=== PATIENT | male | born 1975 | race Caucasian/White ===

== ENCOUNTER 2020-07-04 16:39 | Outpatient (REF) | payer OTHER, SELFPAY | END 2020-07-04 16:40 | disposition home or self-care (01) | LOC: HO.LAB 16:39 | PROVIDERS: Visit Provider Internal Medicine | DX: Z20.822 Contact with and (suspected) exposure to COVID-19 (principal) | CPT/HCPCS: 36415; C9803; U0003 ==

== ENCOUNTER → 2020-07-21 09:45 | Outpatient (REF) | payer OTHER, SELFPAY ==
--- NOTE | 2020-07-21 09:52 | ECG_ITS ---
Test Reason : CHEST PAIN Blood Pressure : / mmHG Vent. Rate : 051 BPM Atrial Rate : 051 BPM P-R Int : 178 ms QRS Dur : 088 ms QT Int : 386 ms P-R-T Axes : 027 017 010 degrees QTc Int : 355 ms Sinus bradycardia Otherwise normal ECG No previous ECGs available Referred By: Maegan Garcia Electronically Signed By:JERI TAM MD
== END ==
LOC: HO.CARD 09:45
PROVIDERS: PCP Internal Medicine; Visit Provider Nurse Practitioner Family
DX: R07.89 Other chest pain (principal)
CPT/HCPCS: 93005

== ENCOUNTER 2020-08-02 08:30 | Outpatient (REF) | payer OTHER, SELFPAY ==
[2020-08-02 09:25] LABS: MANUAL DIFF FLAG NO
[2020-08-02 09:34] LABS: Basophils Percent Auto 0.4 % (0-2); Eosinophils Absolute Auto 0.1 X10*3/uL (0.0-0.4); Eosinophils Percent Auto 1.2 % (0-4); Hematocrit 43.1 % (42-52); Hemoglobin 14.8 g/dl (14.0-18.0); Imm Gran Abs Auto 0.02 X10*3/uL (0.00-0.03); Imm Gran Pct Auto 0.4 % (0.0-0.4); Lymphocytes Absolute Auto 1.4 X10*3/uL (1.2-4.9); Lymphocytes Percent Auto 28.6 % (20-40); Mean Corpuscular HGB Conc 34.3 g/dl (31.0-36.0); Mean Corpuscular Hemoglobin 28.7 pg (27.0-33.0); Mean Corpuscular Volume 83.7 fL (80-98); Mean Platelet Volume 9.5 fL (9.4-12.4); Monocytes Absolute Auto 0.4 X10*3/uL (0.1-1.2); Monocytes Percent Auto 8.3 % (2-11); Neutrophils Absolute Auto 3.1 X10*3/uL (2.0-8.3); Neutrophils Percent Auto 61.1 % (45-73); Platelet Count 238 X10*3/uL (160-400); Red Blood Count 5.15 X10*6/uL (4.60-5.80); Red Cell Distribution Width 12.8 % (11.0-16.0)
[2020-08-02 09:42] LABS: Estimated Average Glucose 103 mg/dL; Hemoglobin A1c % 5.2 %
[2020-08-02 09:59] LABS: Alanine Aminotransferase 47 U/L (0-40); Albumin Level 4.2 g/dL (3.5-5.0); Alkaline Phosphatase 67 U/L (39-117); Anion Gap 10 (12-20); Aspartate Amino Transferase 30 U/L (5-37); Bilirubin Direct 0.2 mg/dL (0.0-0.5); Bilirubin Total 0.7 mg/dL (0.0-1.0); Blood Urea Nitrogen 11 mg/dL (9-16); Calcium 9.2 mg/dL (8.4-10.2); Carbon Dioxide 31 mmol/L (22-29); Chloride 104 mmol/L (96-108); Cholesterol 196 mg/dL; Estimated Glomerular Filt Rate > 60; Glucose Fasting 92 mg/dL (60-99); HDL Cholesterol 46 mg/dL; LDL Cholesterol Calculated 129 mg/dl; Potassium 4.4 mmol/L (3.3-5.1); Rheumatoid Factor < 15.0 IU/mL (<15.0); Sodium 141 mmol/L (135-145); Total Protein 6.6 g/dL (6.5-8.0); Triglycerides 109 mg/dL
[2020-08-02 10:10] LABS: Troponin-I High Sensitivity < 3.5 ng/L (<3.5-35.0)
== END 2020-08-02 08:31 | disposition home or self-care (01) ==
LOC: HO.LAB 08:30
PROVIDERS: Visit Provider Nurse Practitioner Family
DX: Z00.00 Encounter for general adult medical examination without abnormal findings (principal); R07.89 Other chest pain
CPT/HCPCS: 36415; 80048; 80061; 80076; 83036; 84443; 84484; 85025; 86431

== ENCOUNTER 2020-10-15 12:25 | Outpatient (REF) | payer OTHER, SELFPAY ==
[2020-10-15 13:46] LABS: Alanine Aminotransferase 41 U/L (0-40); Albumin Level 4.4 g/dL (3.5-5.0); Alkaline Phosphatase 78 U/L (39-117); Anion Gap 12 (12-20); Aspartate Amino Transferase 22 U/L (5-37); Bilirubin Total 0.6 mg/dL (0.0-1.0); Blood Urea Nitrogen 14 mg/dL (9-16); Calcium 10.1 mg/dL (8.4-10.2); Carbon Dioxide 30 mmol/L (22-29); Chloride 104 mmol/L (96-108); Estimated Glomerular Filt Rate > 60; Glucose Random 103 mg/dL (60-115); Potassium 4.6 mmol/L (3.3-5.1); Sodium 141 mmol/L (135-145); Total Protein 7.1 g/dL (6.5-8.0)
[2020-10-15 14:00] LABS: Magnesium 2.1 mg/dL (1.6-2.6)
[2020-10-15 14:02] LABS: Erythrocyte Sedimentation Rate 7 MM/HR (0-15)
[2020-10-17 08:51] LABS: HBc Num1 0.05 S/CO (0.00-0.79); Hepatitis B Core Antibody Nonreactive (Nonreactive); ~Hepatitis B Surface Antibody REACTIVE (Nonreactive)
[2020-10-17 09:04] LABS: HBsAGNum1 0.15 S/CO (0.00-0.99); Hepatitis B Surface Antigen Negative (Negative); ~Hepatitis C Antibody Nonreactive (Nonreactive)
== END 2020-10-15 12:26 | disposition home or self-care (01) ==
LOC: HO.LAB 12:25
PROVIDERS: Absent Provider Internal Medicine; PCP Internal Medicine; Visit Provider Psychiatry & Neurology Neurology
DX: R25.3 Fasciculation (principal); R79.89 Other specified abnormal findings of blood chemistry; R94.5 Abnormal results of liver function studies
CPT/HCPCS: 36415; 80053; 82550; 83735; 85652; 86704; 86706; 86803; 87340

== ENCOUNTER 2020-10-22 09:19 | Outpatient (REF) | payer OTHER, SELFPAY ==
--- NOTE | ~2020-10-22 | US_ITS ---
EXAMINATION: US ABDOMEN LIMITED CLINICAL INFORMATION: Elevated LFTs. GERD. COMPARISON: None TECHNIQUE: Real-time imaging of the right upper quadrant abdominal viscera. FINDINGS: PANCREAS: Normal. LIVER: Liver echotexture is slightly increased. The liver is normal in size. The liver contour is normal. No focal hepatic lesion. There is no intrahepatic biliary duct dilatation seen. GALLBLADDER: Normal. The gallbladder is physiologically distended without evidence of stones, sludge, polyps, wall thickening or pericholecystic fluid. COMMON BILE DUCT: Normal in caliber measuring 0.26 cm in diameter. RIGHT KIDNEY: Normal. No hydronephrosis. No renal calculi or focal parenchymal lesions. The kidney measures 11.0 cm in maximum dimension. FREE FLUID: None. US/US abdomen limited IMPRESSION: Slightly echogenic liver probably representing fatty infiltration. Otherwise unremarkable exam.
== END 2020-10-22 09:20 | disposition home or self-care (01) ==
LOC: HO.US 09:19
PROVIDERS: Visit Provider Internal Medicine
DX: R79.89 Other specified abnormal findings of blood chemistry (principal)
CPT/HCPCS: 76705

== ENCOUNTER 2020-10-23 14:40 | Outpatient (REF) | payer OTHER, SELFPAY ==
--- NOTE | 2020-10-24 11:46 | MHC.AU.ANO ---
Adult Audiological Evaluation Date of Visit: 10/23/20 Reason for Appointment: Patient has been experiencing bilateral, constant, high-pitched tinnitus since July 2020. He reports that for the last several years, he has been experiencing random, frequent muscle twitches/convulsions. When they occur, they are generally isolated to a certain area, and may last for days. The twitch then moves to a different part of the body. In July, after experiencing the convulsions in his upper body, he experienced a severe headache in the back of his head. The pain migrated towards the top of his head, and then later spread to the area around his ears. He went to the Emergency Room to address the headache. After the headache improved, he developed tinnitus that has not gone away. Patient reports there has not been a definitive diagnosis of what is causing this array of symptoms, but there is a question of whether it might be seizure activity. Hearing Handicap Inventory: HHIE SCORE: 8 Based on HHIE score, patient has: No perceived hearing handicap Ear History: Ear Deformity: None Reported Recent Ear Drainage: None Reported Ear Infections in Childhood: None Reported History of Ear Wax Buildup: None Reported Previous Ear Surgery: None Reported Bothersome Tinnitus/Ringing/Noises in Ears: Both Ears Ear used on the phone: Right Ear History of occupational noise exposure?: Yes: [place] History: No Medical History: Medical History: Headache, Head Injury, Tobacco Use Otoscopy: Right Ear: Unremarkable Left Ear: Unremarkable Tympanometry: Tympanometry performed due to: To assess integrity of the middle ear system Right Ear: Normal Middle Ear System (Type A) Left Ear: Normal Middle Ear System (Type A) Acoustic Reflexes: Ipsilateral Probe Right: 500 Hz: Absent 1000 Hz: Elevated 2000 Hz: Elevated 4000 Hz: Absent Probe Left: 500 Hz: Elevated 1000 Hz: Present 2000 Hz: Elevated 4000 Hz: Absent Contralateral Probe Right: 500 Hz: Absent 1000 Hz: Absent 2000 Hz: Absent 4000 Hz: Absent Probe Left: 500 Hz: Absent 1000 Hz: Elevated 2000 Hz: Elevated 4000 Hz: Absent Otoacoustic Emissions Frequency Range Used: 1.6-8 kHz Right Ear Results: Reduced at 1.6-6 kHz, normal at 8 kHz Analysis: Reduced/Absent emissions suggest cochlear dysfunction Left Ear Results: Reduced at 1.6-6 kHz, normal at 8 kHz Analysis: Reduced/Absent emissions suggest cochlear dysfunction Hearing Evaluation: Transducer(s) Used: Insert Earphones Method: Conventional Audiometry Stimuli Used: Pure Tones Right Ear: Description of Hearing: Normal 250-3000 Hz, notch to mild sensorineural hearing loss at 4000 Hz, and rising to normal by 8000 Hz Left Ear: Description of Hearing: Normal 250-3000 Hz, notch to mild sensorineural hearing loss at 6000 Hz, and rising to normal by 8000 Hz Speech Recognition Threshold (SRT): Method Used: Recorded Lists Stimuli Used: Spondee Words Right Ear: 10 dBHL Left Ear: 10 dBHL Word Discrimination: Method: Recorded Lists Word Lists Used: NU-6 Right Ear: 96% at 50 dBHL Left Ear: 100% at 50 dBHL QuickSIN: SNR Loss of 4 dB, which suggests mildly elevated difficulty hearing in background noise Interpretation of Results: Patient's otoacoustic emission results and acoustic reflex results are abnormal, and highly unexpected given the mostly normal audiogram. This suggests that there may be retrocochlear pathology, and further work-up is needed. Recommendations: Referral to Ear, Nose, and Throat is highly recommended to address absent/reduced otoacoustic emissions and absent/elevated acoustic reflexes in the presence of mostly normal hearing. Amplification is not warranted at this time. Discussed tinnitus relief strategies, such as use of fans, music, tv, etc. Diagnosis: Primary Diagnosis: H93.13 Tinnitus, Bilateral Secondary Diagnosis: H90.3 Bilateral Sensorineural Hearing Loss Services Performed: Comprehensive Audiological Evaluation (CPT 25996), Limited Otoacoustic Emissions (CPT 08151), Tympanometry and Acoustic Reflexes (CPT 98656) Signature: Provider: Jazz Renae, [facility]
== END 2020-10-23 14:41 | disposition home or self-care (01) ==
LOC: HO.SH 14:40
PROVIDERS: Visit Provider Internal Medicine
DX: H90.3 Sensorineural hearing loss, bilateral (principal); H93.13 Tinnitus, bilateral
CPT/HCPCS: 92550; 92557; 92587

== ENCOUNTER 2021-04-27 15:24 | Outpatient (REF) | payer OTHER, SELFPAY ==
[2021-04-27 19:09] LABS: Bilirubin Direct 0.2 mg/dL (0.0-0.5); Bilirubin Total 0.6 mg/dL (0.0-1.0); Cholesterol 215 mg/dL; HDL Cholesterol 42 mg/dL; LDL Cholesterol Calculated 149 mg/dl; Lipase 17 U/L (8-78); Triglycerides 124 mg/dL
[2021-04-27 19:29] LABS: TSH reflex Free T4 0.46 uIU/mL (0.32-4.0)
[2021-04-27 19:56] LABS: Folate 13.4 ng/mL (> or = 4.0)
[2021-04-27 20:43] LABS: Vitamin B12 398 pg/mL (200-900)
[2021-05-01 13:46] LABS: Vitamin D 25-OH, D2 <4 ng/mL; Vitamin D 25-OH, D3 22 ng/mL; Vitamin D 25-OH, Total 22 ng/mL (30-100)
[2021-05-01 15:01] LABS: FIB-ALT 34 U/L (9-46); FIB-Alpha-2-Macroglobulin 113 mg/dL (106-279); FIB-Apolipoprotein A1 127 mg/dL (94-176); FIB-GGT 35 U/L (3-95); FIB-Haptoglobin 68 mg/dL (43-212); FIB-Total Bilirubin 0.5 mg/dL (0.2-1.2); Liver Fibrosis Score 0.14; Liver Fibrosis Stage F0; Nec Inflam Act Grade A0; Nec Inflam Act Score 0.14
[2021-05-02 10:22] LABS: Transglutaminase Ab IgG <1.0 U/mL; Transglutaminase IgA <1.0 U/mL
== END 2021-04-27 15:25 | disposition home or self-care (01) ==
LOC: HO.LAB 15:24
PROVIDERS: PCP Internal Medicine; Referring Provider Internal Medicine; Visit Provider Nurse Practitioner Family
DX: R10.11 Right upper quadrant pain (principal); E55.9 Vitamin D deficiency, unspecified; I25.10 Atherosclerotic heart disease of native coronary artery without angina pectoris; R17 Unspecified jaundice; R14.0 Abdominal distension (gaseous); K76.0 Fatty (change of) liver, not elsewhere classified; K21.9 Gastro-esophageal reflux disease without esophagitis; R13.10 Dysphagia, unspecified; K58.2 Mixed irritable bowel syndrome; Z12.11 Encounter for screening for malignant neoplasm of colon
CPT/HCPCS: 36415; 80061; 81596; 82247; 82248; 82306; 82607; 82746; 83516; 83690; 84443

== ENCOUNTER → 2021-06-17 15:31 | Outpatient (BNVA) | payer OTHER, SELFPAY | PROVIDERS: PCP Internal Medicine; Referring Provider Internal Medicine; Visit Provider Nurse Practitioner Family ==

== ENCOUNTER → 2021-10-28 16:08 | Outpatient (BNVA) | payer OTHER, SELFPAY | PROVIDERS: PCP Internal Medicine; Referring Provider Internal Medicine; Visit Provider Nurse Practitioner Family | DX: Z13.89 Encounter for screening for other disorder (principal) ==

== ENCOUNTER 2022-06-28 07:57 | Day surgery (SDC) | payer OTHER, SELFPAY ==
[2022-06-24 09:44] VITALS: BMI 30.7
[2022-06-28 08:11] VITALS: BP 128/64; PULSE 67; RESP 15; TEMP 36.3; O2SAT 98
--- NOTE | 2022-06-28 08:35 | MHC.SHP ---
Pre-Procedural Eval Section A Date of Service: 06/28/22 The patient is an INPATIENT: No The History & Physical has been completed within 30 days and I have reviewed it.: No Section B Chief Complaint: colon cancer screening, rectal bleeding, IBS Details of Present Illness: colon cancer screening, rectal bleeding, IBS Relevant Family History (Specify if Yes): No Relevant Social History: Tobacco Use ( former smoker) Present Medications: see Short Stay Collaborative assessment Medical History: Significant History (Epiploic appendagitis GERD (gastroesophageal reflux disease) Overweight (BMI 25.0-29.9) Pain, chest wall Seizure) History of Previous Operations: No relevant previous surgery Allergies: Allergies Allergy/AdvReac Type Severity Reaction Status Date / Time No Known Allergies Allergy Verified 05/24/22 14:18 Review of Systems Sugical H&P ROS: Negative: Constitution, Cardiovascular, Respiratory and Gastrointestinal Exam Surgical H&P Exam: Normal: Heart, Normal: Lungs, Normal: Extremities and Normal: Abdomen Plan Diagnosis/Plan: Unchanged I have reviewed the history and physical and performed a pertinent physical examination on my patient. No changes have occurred unless specified. Time Spent With Patient Time: Total time managing care of this patient today ____ minutes.
[2022-06-28] MEDS: Lactated Ringers 1,000 ML 80 ML IVCONT (08:39)
--- NOTE | 2022-06-28 09:03 | HO.ANESPROP2 ---
[facility] Active Problems Active Problems: All Active Problems (Updated 06/28/22 @ 08:05 by Page Cortés RN) Tinnitus of both ears (Acute) Fatty liver (Acute) Annual physical exam (Acute) Obesity (BMI 30.0-34.9) (Acute) Visual changes (Acute) Hypercholesterolemia (Acute) Seizure (Acute) GERD (gastroesophageal reflux disease) (Acute) Overweight (BMI 25.0-29.9) (Acute) Pain, chest wall (Acute) Past Medical History Medical History Epiploic appendagitis GERD (gastroesophageal reflux disease) Overweight (BMI 25.0-29.9) Pain, chest wall Seizure Functional capacity: independent ambulation Family History Family History Father Myocardial infarct Mother Depression Family history of problems with anesthesia: No Surgical History Surgical History No pertinent past surgical history History of Problems with Anesthesia: No Social History Social History Housing: House Alcohol intake: current Alcohol intake frequency: a few times a month Patient Tobacco Use Status: Former Tobacco user Quit Date: 2011 Tobacco use type: Cigarette Years Smoked: quit 2003 e-Cigarette/Vaping Use: Never Used Second Hand Smoke Exposure: No Use of substances other than those prescribed or required for medical reasons: No Are you DNR?: No Advance Directives: No Advance Directives Information Provided: Yes Current occupational status: employed Cognitive needs: No Hearing needs: No Vision needs: No Meds Allergies Allergy/AdvReac Type Severity Reaction Status Date / Time No Known Allergies Allergy Verified 06/28/22 08:40 Active Medications: Current Medications Lactated Ringer's (Lr) 1,000 mls @ 80 mls/hr IVCONT .[id number] ISSA Last Admin: 06/28/22 08:39 Dose: 80 mls/hr Home Medications Medication Instructions Recorded Confirmed Last Taken Type acetaminophen 500 mg tablet 500 mg PO Q6H PRN Pain 03/13/21 05/24/22 Unknown History (Tylenol Extra Strength) Exam Exam Date and Time: June 28, 2022902 Height,Weight and Vital Signs: Height 5 ft 6 in Weight 86.183 kg Last Vital Signs Temp 97.4 F 06/28/22 08:11 Pulse 67 06/28/22 08:11 Resp 15 06/28/22 08:11 BP 128/64 06/28/22 08:11 Pulse Ox 98 06/28/22 08:11 O2 Del Method 06/28/22 08:11 Airway Mallampati Class: III TM Dist: >3cm Neck ROM: Full Heart: RRR Lungs: CTA Assessment and Plan Final Anesthetic Review Family History of Problems with Anesthesia: No History of Problems with Anesthesia: No ASA Class: II Patient Risk: Low Procedure Risk: Low Anesthetic Plan Anesthetic Plan: MAC: Disposition: Standard PACU
--- NOTE | 2022-06-28 09:24 | P.CONAN_ITS ---
[facility] Active Problems Active Problems: All Active Problems (Updated 06/28/22 @ 08:05 by Page Cortés RN) Tinnitus of both ears (Acute) Fatty liver (Acute) Annual physical exam (Acute) Obesity (BMI 30.0-34.9) (Acute) Visual changes (Acute) Hypercholesterolemia (Acute) Seizure (Acute) GERD (gastroesophageal reflux disease) (Acute) Overweight (BMI 25.0-29.9) (Acute) Pain, chest wall (Acute) Past Medical History Medical History Epiploic appendagitis GERD (gastroesophageal reflux disease) Overweight (BMI 25.0-29.9) Pain, chest wall Seizure Functional capacity: independent ambulation Family History Family History Father Myocardial infarct Mother Depression Family history of problems with anesthesia: No Surgical History Surgical History No pertinent past surgical history History of Problems with Anesthesia: No Social History Social History Housing: House Alcohol intake: current Alcohol intake frequency: a few times a month Patient Tobacco Use Status: Former Tobacco user Quit Date: 2011 Tobacco use type: Cigarette Years Smoked: quit 2003 e-Cigarette/Vaping Use: Never Used Second Hand Smoke Exposure: No Use of substances other than those prescribed or required for medical reasons: No Are you DNR?: No Advance Directives: No Advance Directives Information Provided: Yes Current occupational status: employed Cognitive needs: No Hearing needs: No Vision needs: No Meds Allergies Allergy/AdvReac Type Severity Reaction Status Date / Time No Known Allergies Allergy Verified 06/28/22 08:40 Active Medications: Current Medications Lactated Ringer's (Lr) 1,000 mls @ 80 mls/hr IVCONT .[id number] ISSA Last Admin: 06/28/22 08:39 Dose: 80 mls/hr Home Medications Medication Instructions Recorded Confirmed Last Taken Type acetaminophen 500 mg tablet 500 mg PO Q6H PRN Pain 03/13/21 05/24/22 Unknown History (Tylenol Extra Strength) Exam Exam Date and Time: June 28, 2022923 Height,Weight and Vital Signs: Height 5 ft 6 in Weight 86.183 kg Last Vital Signs Temp 97.4 F 06/28/22 08:11 Pulse 67 06/28/22 08:11 Resp 15 06/28/22 08:11 BP 128/64 06/28/22 08:11 Pulse Ox 98 06/28/22 08:11 O2 Del Method 06/28/22 08:11 Assessment and Plan Final Anesthetic Review Family History of Problems with Anesthesia: No History of Problems with Anesthesia: No ASA Class: II Final Preanesthetic Review: Meds/Allgs Chart Reviewed, Consent Obtained/Reviewed and Anes Risks/Benef Reviewed Patient Risk: Low Procedure Risk: Low Anesthetic Plan Anesthetic Plan: MAC: Disposition: Standard PACU
--- NOTE | 2022-06-28 09:33 | PM.OP ---
Brief Operative Note Date of Service: 06/28/22 Pre-op diagnosis: colon cancer screening, rectal bleeding, IBS Post-op diagnosis: other ( diverticulosis, hemorrhoids) Procedure: COLONOSCOPY TILL CECUM WITH BIOPSIES Surgeon: Ed Ramirez MD Anesthesia: MAC Was an Furnace Process Supervisor used for this Procedure?: Yes Furnace Process Supervisor: Fior Ortega Estimated blood loss (mL): 0 Pathology: other (A. right colon bxs, R/O microscopic colitis B. left colon bxs, R/O microscopic colitis) Condition: stable Disposition: PACU
--- NOTE | 2022-06-28 09:35 | P.OP_ITS ---
Operative Note Operative Note Date of Service: 06/28/22 Narrative: Pre-op diagnosis: colon cancer screening, rectal bleeding, IBS Post-op diagnosis:?other ( diverticulosis, hemorrhoids) Surgeon: Ed Ramirez MD Anesthesia:?MAC COLONOSCOPY TILL CECUM WITH BIOPSIES Consent: Indications for the procedure and potential complications of bleeding, perforation, reaction to medications and missed diagnosis were discussed with the patient and informed consent was obtained. Instrument: Olympus PCF H 190 L variable stiffness pediatric colonoscope Monitoring: Vital signs and clinical assessment, intermittent blood pressure monitoring, continuous EKG monitoring, Pulse oximetry and Carbon Dioxide monitoring were done throughout the procedure. Colon withdrawl time was 10 minutes. Procedure: The patient was placed in the left lateral decubitis position and pre-procedure medications were administered. After a digital rectal examination of the ano-rectum, the video colonoscope was inserted into the rectum and advanced through the colon to the cecum. The colonoscope was slowly withdrawn in a retrograde panoramic fashion and the colon mucosa was carefully examined including a retroflexed view of the rectum. Findings and interventions are described below. Procedure Difficulty: Without difficulty Findings: Terminal Ileum: Not evaluated Cecum: Normal Ascending Colon: Normal Transverse Colon: Normal Descending Colon: Normal Sigmoid Colon: Moderate diverticulosis Rectum: Normal Ano-rectum: Moderate internal hemorrhoids Colon preparation: Excellent Impression and Post Procedure Diagnosis: Colonoscopy Findings: no polyps were detected random biopsies were obtained from right and left colon to check for microscopic colitis Moderate diverticulosis seen in the sigmoid colon Moderate hemorrhoids on retroflexed exam. Plan: Await pathology results Patient has an appointment on 07/12/22 in the GI Clinic with Janeen Montero FNP- BC. Repeat Colonoscopy in 10 years if biopsies are normal. Above findings were reviewed with the patient and Hemorrhoids and diverticulosis handouts were given in the discharge area. Pt denies recent rectal bleeding. He was advised to use hydrocortisone cream as needed for recurrent bleeding.
[2022-06-28 09:36] VITALS: BP 95/47; PULSE 64; RESP 16; TEMP 37.1; O2SAT 95
[2022-06-28 09:51] VITALS: BP 108/62; PULSE 66; RESP 16; TEMP 37.1; O2SAT 97
--- NOTE | 2022-06-28 11:05 | HO.POSTANES ---
Post Anesthesia Evaluation Post Anesthesia Evaluation Vital Signs: Vital Signs Temp Pulse Resp BP Pulse Ox O2 Del Method 06/28/22 09:51 98.8 F 66 16 108/62 97 Room Air 06/28/22 09:36 98.8 F 64 16 95/47 L 95 Room Air 06/28/22 08:11 97.4 F 67 15 128/64 98 Room Air Anesthesia: Monitored Mental Status: Awake Pain Control: Satisfactory Nausea/Vomiting: None Hydration: Adequate Anesthesia-Related Issues: No Anes. Related Issues
== END 2022-06-28 10:40 | disposition home or self-care (01) ==
PROVIDERS: PCP Internal Medicine; Visit Provider Internal Medicine Gastroenterology
PROC: 0DJD8ZZ Inspection of Lower Intestinal Tract, Via Natural or Artificial Opening Endoscopic (ICD-10-PCS; CPT 45378; principal; 2022-06-28 09:10)
DX: Z12.11 Encounter for screening for malignant neoplasm of colon (principal); K58.9 Irritable bowel syndrome, unspecified; K57.30 Diverticulosis of large intestine without perforation or abscess without bleeding; K64.8 Other hemorrhoids; K21.9 Gastro-esophageal reflux disease without esophagitis; K63.89 Other specified diseases of intestine; R56.9 Unspecified convulsions; E66.3 Overweight; Z68.30 Body mass index [BMI] 30.0-30.9, adult; Z79.899 Other long term (current) drug therapy; Z87.891 Personal history of nicotine dependence
CPT/HCPCS: 45380; 88305

== ENCOUNTER 2024-03-30 08:00 | Outpatient (AMB) | payer OTHER, SELFPAY ==
[2024-03-30 08:02] VITALS: BP 130/68; PULSE 50; O2SAT 98; BMI 31.1
--- NOTE | 2024-03-30 08:02 | A.OFFPC_ITS ---
Vital Signs 03/30/24 08:02 Height 5 ft 6 in Weight 193 lb BMI 31.1 BP 130/68 Blood Pressure Location Lt brachial Position Sitting Pulse 50 Pulse Source Pulse Oximeter Pulse Oximetry (%) 98 Oxygen Delivery Method Room Air Intake Visit Reasons: stomach pain Intake Note: pt c/o LUQ pain [id number] Creel Hand Required: No Allergies No Known Allergies Allergy (Verified 03/30/24 08:06) Medication List - Last Reconciled 03/30/24 by Kayla Yañez PA-C No Known Home Meds Tobacco use date assessed: 03/30/24 HPI stomach pain HPI Details 46-year-old obese male with a history of GERD and seizure disorder and fatty liver last seen by Dr. Geronimo coming in for acute problem. Patient states 1 month ago started having right upper quadrant pain which is very mild and eventually started radiating to the epigastric and right lower quadrant area. Last week went to [facility] ER for this concern abdominal CT and right upper quadrant ultrasound is negative for acute abnormalities and patient was discharged home with omeprazole. Abdominal pain completely resolved last Tuesday and and resumed Tuesday night in the right upper quadrant that migrated to the left upper quadrant. Pain typically resolves with eating warm foods. He mentioned the pain this now in bilateral rib areas and worsens with driving and when he tenses up. [facility] Medical History (Updated 03/30/24 @ 10:31 by Kayla Yañez PA-C) Epiploic appendagitis Seizure GERD (gastroesophageal reflux disease) Overweight (BMI 25.0-29.9) Pain, chest wall Surgical History (Updated 07/09/22 @ 10:44 by Ry Mcguire) Hx of colonoscopy No pertinent past surgical history Family History Father Myocardial infarct Mother Depression Social History Housing: House Alcohol intake: current Alcohol intake frequency: a few times a month Patient Tobacco Use Status: Former Tobacco user Tobacco use type: Cigarette Years Smoked: quit 2003 e-Cigarette/Vaping Use: Never Used Second Hand Smoke Exposure: No Current occupational status: employed Cognitive needs: No Hearing needs: No Vision needs: No Questionnaire Thrive Questionnaire Date Thrive assessed: 02/08/22 Are you currently unemployed and looking for a job?: No AUDIT C Alcohol Use Questionnaire (AUDIT-C) 1. How often do you have a drink containing alcohol?: Never 3. How often do you have six or more drinks on one occasion?: Never Total Score: 0 LESLIE-7 AMB Questionnaire LESLIE-7 Date LESLIE - 7 assessed: 02/08/22 Source: Developed by Drs. Trent Escamilla, Kelin Bentley, Jasson Montes and colleagues, with an educational sunita from [employer]. Review of Systems Const Denies body aches, Denies chills, Denies fever(s), Denies headache(s) and Denies poor appetite Eyes Reports no additional complaints ENT Denies dizziness and Denies headache(s) Card Denies chest pain, Denies edema, Denies lightheadedness and Denies dyspnea Resp Denies cough and Denies dyspnea GI Denies abdominal pain, Denies melena, Denies hematochezia, Denies change in bowel habits, Denies constipation, Reports heartburn (Occasional), Denies diarrhea, Denies nausea and Denies vomiting Reports no additional complaints Musc Reports no additional complaints and Denies abnormal gait Skin/Breast Reports system reviewed and no additional complaints, except as documented Neuro Denies abnormal gait, Denies dizziness and Denies headache(s) Psych Reports no additional complaints Physical exam (Primary Care) Vital Signs: Last Vital Signs Pulse 50 03/30/24 08:02 BP 130/68 03/30/24 08:02 Pulse Ox 98 03/30/24 08:02 Oxygen Delivery Method Room Air 03/30/24 08:02 BMI result Body Mass Index 31.1 Tobacco/Smoking Status: Tobacco use Status Tobacco use date assessed 03/30/24 03/30/24 08:07 Patient Tobacco Use Status Former Tobacco user 03/30/24 08:07 Tobacco use type Cigarette 03/30/24 08:07 e-Cigarette/Vaping Use Never Used 03/30/24 08:07 Thrive Assessment: Date of Thrive Assessment Date Thrive assessed 02/08/22 03/30/24 08:07 Const General: cooperative, healthy appearing, comfortable and no acute distress Orientation/consciousness: patient oriented x3 HENMT Head: Yes normocephalic Ears: hearing grossly normal bilaterally General nose exam: Normal external nose present Eyes General: appearance normal, both eyes and all related structures Conjunctivae: conjunctivae normal Neck Neck: Yes full ROM and Yes no lymphadenopathy Resp Effort & Inspection: normal respiratory effort Auscultation: clear to auscultation bilaterally, no crackles, no rales, no rhonchi and no wheezes Cardio Rate: regular rate Rhythm: regular rhythm GI Inspection: Yes normal to inspection Palpation (GI): Soft to palpation, not firm, nontender, no guarding, not rigid, no hepatosplenomegaly, no masses and No Rebound tenderness present Skin General skin exam: no rashes or lesions noted Neuro General: patient oriented x3 Gait exam (Neuro): Normal gait present Extrem General: Yes normal to inspection, Yes full ROM and No edema Psych Affect: normal affect Attitude: cooperative Insight: Good insight present (Psych) Judgement: Good judgement present (Psych) Coding Level of Care Code Est Pt Level 4 (52430) Diagnoses Fatty liver K76.0 Obesity (BMI 30.0-34.9) E66.9 Hypercholesterolemia E78.00 Gastroesophageal reflux disease, unspecified whether esophagitis present K21.9 Esophagitis presence: esophagitis presence not specified Abdominal pain R10.9 Tinnitus of both ears H93.13 Assessment & Plan Assessment & Plan (1) Fatty liver: Code(s): K76.0 - Fatty (change of) liver, not elsewhere classified Category: Medical Plan: Encouraged healthy diet regular exercise. (2) Obesity (BMI 30.0-34.9): Code(s): E66.9 - Obesity, unspecified Category: Medical Plan: Encouraged healthy diet regular exercise. (3) Hypercholesterolemia: Code(s): E78.00 - Pure hypercholesterolemia, unspecified Category: Medical Plan: Avoid foods that are high in cholesterol such as red meat, fried foods, eggs and baked goods. Triglyceride goal of less than 150 and LDL goal of less than 130. Repeat cholesterol labs to be drawn before annual physical. (4) GERD (gastroesophageal reflux disease): Code(s): K21.9 - Gastro-esophageal reflux disease without esophagitis Category: Medical Qualifiers: Esophagitis presence: esophagitis presence not specified Qualified Code(s): K21.9 - Gastro-esophageal reflux disease without esophagitis Plan: Avoid trigger foods such as citrus, tomato products, soda, caffeine, spicy foods and other foods that may be irritating to your stomach. Avoid laying flat 3-4 hours after eating and elevate the head of the bed 30 degrees to prevent acid from moving into the esophagus. Not currently on medical management. (5) Abdominal pain: Code(s): R10.9 - Unspecified abdominal pain Category: Medical Plan: No signs of acute abdomen on exam and blood work and imaging from ER visit 03/18/2024 reassuring. Discussed this pain could be muscular in nature and advised to continue to monitor symptoms at this time. Reviewed red flag symptoms of abdominal pain and when to present for re-evaluation. Pain could be related to GERD symptoms and advised to use antacids as needed. (6) Tinnitus of both ears: Code(s): H93.13 - Tinnitus, bilateral Category: Medical Plan: Patient also having concern of tinnitus in bilateral ears and audiogram from 2020 recommended follow up with ENT which was not completed. Repeat audiogram ordered as patient continues to have tenderness and hearing loss. Plan This note was constructed using voice recognition software. While every effort has been made to ensure accuracy and chief librarian circulation department, still areas may have been included sometimes these areas may affect the content or meeting of the given symptoms. Total time spent caring for the patient today was 30 minutes. This includes time spent before the visit reviewing the chart, time spent during the visit, and time spent after the visit and documentation. Orders: Referrals Speech and Hearing Referral H91.90 - Unspecified hearing loss, unspecified ear, H93.13 - Tinnitus, bilateral
== END 2024-03-30 08:40 | disposition home or self-care (01) ==
PROVIDERS: PCP Internal Medicine
DX: E78.00 Pure hypercholesterolemia, unspecified (principal); K76.0 Fatty (change of) liver, not elsewhere classified; E66.811 Obesity, class 1; Z68.31 Body mass index [BMI] 31.0-31.9, adult; K21.9 Gastro-esophageal reflux disease without esophagitis; R10.9 Unspecified abdominal pain; H93.13 Tinnitus, bilateral

== ENCOUNTER → 2024-03-30 08:00 | Outpatient (BNVA) | payer OTHER, SELFPAY | PROVIDERS: PCP Internal Medicine ==

== ENCOUNTER 2024-04-17 07:53 | Outpatient (REF) | payer OTHER, SELFPAY | END 2024-04-17 07:54 | disposition home or self-care (01) | LOC: HO.SH 07:53 | DX: Z01.118 Encounter for examination of ears and hearing with other abnormal findings (principal); H90.3 Sensorineural hearing loss, bilateral | CPT/HCPCS: 92550; 92557; 92588 ==

== ENCOUNTER 2024-08-23 10:36 | Outpatient (AMB) | payer OTHER, SELFPAY ==
[2024-08-23 11:05] VITALS: BP 128/72; PULSE 58; O2SAT 96; BMI 31.6
--- NOTE | 2024-08-23 11:05 | MHC.PC.OV ---
Vital Signs 08/23/24 11:05 Height 5 ft 6 in Weight 196 lb BMI 31.6 BP 128/72 Blood Pressure Location Lt brachial Position Sitting Pulse 58 Pulse Source Pulse Oximeter Pulse Oximetry (%) 96 Oxygen Delivery Method Room Air Intake Visit Reasons: annual exam Allergies No Known Allergies Allergy (Verified 08/23/24 11:09) Tobacco use date assessed: 08/23/24 Dental Screening Dental Screen Date: 08/23/24 Did you have a dental visit in the last 12 months?: Yes Did you have a dental problem in the last 6 months where you did not have access to dental care?: No Was dental information given to patient?: Patient has dentist HPI annual exam HPI Details RUQ abd pain 2 weeks ago intermittent PFSH Medical History (Updated 08/23/24 @ 11:53 by Kevin Geronimo MD) Epiploic appendagitis Seizure GERD (gastroesophageal reflux disease) Overweight (BMI 25.0-29.9) Pain, chest wall Surgical History (Updated 07/09/22 @ 10:44 by Ry Mcguire) Hx of colonoscopy No pertinent past surgical history Family History (Updated 08/23/24 @ 11:50 by Kevin Geronimo MD) Father Myocardial infarct Mother Depression ICD (implantable cardioverter-defibrillator) in place Social History (Updated 08/23/24 @ 11:51 by Kevin Geronimo MD) Housing: House Alcohol intake: current Alcohol intake frequency: a few times a month Comment: once Q 3 months 1-2 drinks Patient Tobacco Use Status: Former Tobacco user Tobacco use type: Cigarette Years Smoked: quit 2003 e-Cigarette/Vaping Use: Never Used Second Hand Smoke Exposure: No Current occupational status: employed Cognitive needs: No Hearing needs: No Vision needs: No Questionnaire PHQ-9 Over the last 2 weeks, how often have you been bothered by any of the following problems? 1. Little interest or pleasure in doing things: not at all 2. Feeling down, depressed, or hopeless: not at all 3. Trouble falling or staying asleep, or sleeping too much: not at all 4. Feeling tired or having little energy: not at all 5. Poor appetite or overeating: not at all 6. Feeling bad about yourself - or that you are a failure or have let yourself or your family down: not at all 7. Trouble concentrating on things, such as reading the newspaper or watching television: not at all 8. Moving or speaking so slowly that other people could have noticed. Or the opposite - being so fidgety or restless that you have been moving around a lot more than usual: not at all 9. Thoughts that you would be better off or of hurting yourself in some way: not at all Total score: 0 Depression Screening Interpretation: Negative Depression Screening Done: Yes 19909 - PHQ-9 Billing: Yes Source: Developed by Drs. Trent Escamilla, Kelin Bentley, Jasson Montes and colleagues, with an educational snuita from [employer]. Thrive Questionnaire Date Thrive assessed: 08/23/24 I am a: Patient What is your living situation today?: I have a steady place to live Within the past 12 months, did the food you bought not last and you didn't have the money to get more?: Never true Within the past 12 months, did you worry whether your food would run out before you got money to buy more?: Never true Do you have trouble paying for medicines?: No Do you have trouble getting transportation to medical appointments?: No Do you have trouble paying your heating and electricity bill?: No Do you have trouble taking care of your child, family member or friend?: No Do you have trouble with day-to-day activities such as bathing, preparing meals, shopping, managing finances, etc.?: No Are you currently unemployed and looking for a job?: No Are you interested in more education?: No Please select the resources that you would like help with: None Currently or been in a relationship where the following occur: No concerns reported THRIVE Score: 0 AUDIT C Alcohol Use Questionnaire (AUDIT-C) 1. How often do you have a drink containing alcohol?: Monthly or less 2. How many drinks containing alcohol do you have on a typical day when you are drinking?: 1 or 2 3. How often do you have six or more drinks on one occasion?: Never Total Score: 1 LESLIE-7 AMB Questionnaire LESLIE-7 Date LESLIE - 7 assessed: 08/23/24 Feeling nervous, anxious, or on edge: 1 = Several days Not being able to stop or control worryin = Not at all Worrying too much about different things: 0 = Not at all Trouble relaxin = Not at all Being so restless that it is hard to sit still: 0 = Not at all Becoming easily annoyed or irritable: 0 = Not at all Feeling afraid as if something awful might happen: 0 = Not at all Total LESLIE-7 score (0-4 normal; 5-9 mild; 10-14 moderate; 15-21 severe): 1 Source: Developed by Drs. Trent Escamilla, Kelin Bentley, Jasson Montes and colleagues, with an educational sunita from [employer]. LESLIE-7 Assessment Billing LESLIE-7 Assessment Tool: LESLIE-7 Assessment 12265 Review of Systems Const Denies poor appetite and Denies weakness Eyes Denies no additional complaints ENT Reports Normal hearing present, Denies dizziness, Denies nasal congestion, Denies tinnitus and Denies sore throat Card Denies chest pain, Denies syncope, Denies rapid heart rate and Denies dyspnea Resp Denies cough and Denies dyspnea GI Denies change in stool character, Reports constipation, Denies diarrhea, Denies nausea and Denies vomiting Denies dysuria and Denies urinary frequency Neuro Reports Normal hearing present, Denies confusion, Denies dizziness, Denies syncope and Denies weakness Psych Denies confusion Physical exam (Primary Care) Vital Signs: Last Vital Signs Pulse 58 08/23/24 11:05 BP 128/72 08/23/24 11:05 Pulse Ox 96 08/23/24 11:05 Oxygen Delivery Method Room Air 08/23/24 11:05 BMI result Body Mass Index 31.6 Tobacco/Smoking Status: Tobacco use Status Tobacco use date assessed 08/23/24 08/23/24 11:10 Patient Tobacco Use Status Former Tobacco user 08/23/24 11:51 Tobacco use type Cigarette 08/23/24 11:51 e-Cigarette/Vaping Use Never Used 08/23/24 11:51 PHQ-9: PHQ-9 Score PHQ-9: Total score 0 08/23/24 12:05 Depression Screening Interpretation: Negative Thrive Assessment: Date of Thrive Assessment Date Thrive assessed 08/23/24 08/23/24 11:10 Currently or been in a relationship where the following occur: No concerns reported Const General: alert and awake; No confusion Orientation/consciousness: No confusion HENMT Head: Yes normocephalic Ears: external ears normal and TM's normal bilaterally Face and sinus: Yes normal facial exam Mouth: moist mucous membranes Throat: Yes tonsils normal Eyes Conjunctivae: conjunctivae normal Pupils: Equal, round and reactive pupils present and Pupil accommodation reflex normal Direct Ophthalmoscopy: normal light reflex Neck Neck: No lymphadenopathy Thyroid: Thyroid normal Chest Chest palpation & inspection: normal inspection of the chest Resp Effort & Inspection: normal respiratory effort and no audible wheezes Auscultation: clear to auscultation bilaterally, no crackles, no wheezes and lung sounds not diminished Cardio Rate: regular rate Rhythm: regular rhythm Peripheral pulses: radial pulses present and dorsalis pedis present GI Palpation (GI): no masses Auscultation: normal bowel sounds and normoactive bowel sounds Rectal Exam - Male: Yes deferred Skin General skin exam: no rashes or lesions noted Rashes: no rashes Neuro General: deep tendon reflexes 2+ bilaterally and No confusion Cranial nerves: Yes Equal, round and reactive pupils present, Yes Midline tongue present, Yes Normal hearing present and Yes Ability to bilaterally elevate shoulders present Cognition (Neuro): normal cognition Gait exam (Neuro): Normal gait present Motor exam (neuro): 5/5 motor strength present throughout Deep tendon reflexes (DTR's): Right brachioradialis reflex intensity grade: 2+, Left brachioradialis reflex intensity grade: 2+, Right patellar reflex intensity grade: 2+ and Left patellar reflex intensity grade: 2+ Extrem General: No edema Office Procedures Flu Questionnaire Does the patient have a severe egg allergy?: No Does the patient have severe life threatening allergies?: No Does the patient have a fever or illness today?: No Has the patient ever had Guillain-Kirvin Syndrome?: No Has the patient ever had any past reaction to a flu shot?: No Immunizations Fluarix Triv 8961-0960 (PF) 45 mcg (15 mcg x 3)/0.5 mL IM syringe Performing Provider: Kevin Geronimo MD [place] [facility] Administered by: Jazzmine Khan CMA on 08/23/24 12:08 Dose Route Admin Location Dispensed Lot Number Expiration Date [facility] [place]NOTE 2] [employer] 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5 Additional Codes LESLIE-7 Assessment Billing - LESLIE-7 Assessment Tool: LESLIE-7 Assessment 44624 ([id number]) PHQ-9 - 95082 - PHQ-9 Billing: Yes ([id number]) Assessment & Plan Assessment & Plan (1) Annual physical exam: Code(s): Z00.00 - Encounter for general adult medical examination without abnormal findings Category: Medical Plan: Patient is advised to eat healthy, keep well hydrated, keep active and have adequate sleep. (2) Obesity (BMI 30.0-34.9): Code(s): E66.9 - Obesity, unspecified Category: Medical Plan: Diet and exercise (3) Hypercholesterolemia: Code(s): E78.00 - Pure hypercholesterolemia, unspecified Category: Medical Plan: Avoid fried foods, chicken skin, eggs, butter margarine, pastries and meat. Be it pork or beef they have a lot of cholesterol LDL goal of less than 130 and triglyceride of less than 150 (4) GERD (gastroesophageal reflux disease): Code(s): K21.9 - Gastro-esophageal reflux disease without esophagitis Category: Medical Qualifiers: Esophagitis presence: esophagitis presence not specified Qualified Code(s): K21.9 - Gastro-esophageal reflux disease without esophagitis Plan: Avoid the foods that causes that usually spicy foods, tomato products, juices, coffee, soda and foods that your sensitive to. After eating do not lie down, allow 3-4 hours before in lie down. And keep the head of bed above 30 degrees to avoid the acid from going up. (5) Fatty liver: Code(s): K76.0 - Fatty (change of) liver, not elsewhere classified Category: Medical Plan: Low-fat diet and exercise (6) Sensorineural hearing loss: Comment: heating test 2023, ent seen already Code(s): H90.5 - Unspecified sensorineural hearing loss Category: Medical Plan History of Present Illness The patient is a 48-year-old male presenting for a wellness visit and chronic condition management. A detailed review of his gastroesophageal reflux disease (GERD) indicates prior use of omeprazole with recent cessation due to adverse symptoms, including a nonspecific feeling of illness. Currently, the patient experiences mild heartburn occasionally, which resolves promptly without medication. Additionally, a significant episode of unilateral pain was noted a month prior, lasting three weeks, and suspected muscular in origin related to work tasks, ruled out by CT imaging which showed no abnormalities. The patient also has a recorded history of hypercholesterolemia and fatty liver, with an LDL goal set below 130 and triglycerides under 150. Current hearing assessment determined mild loss with sporadic tinnitus, not deemed critical enough to necessitate intervention. Family history reveals paternal heart attack and maternal cardiac arrhythmia corrected via defibrillator implantation, indicating a potential genetic predisposition to cardiovascular conditions. Health Maintenance - Continued management of hypercholesterolemia with LDL target <130 and triglycerides <150 - Screening for liver health due to fatty liver history - Recent hearing test indicating decreased auditory function - Colon screening completed in June 2022 - Flu vaccination offered and administered during this visit - Counseling on diet, exercise, and smoking cessation Social History - Engaged in occupational work with prolonged hours (13-14 hours/day) - Reports difficulty integrating exercise due to demanding workload - Resides in [place] with a backyard adjacent to a park - Consumes alcohol infrequently, approximately once every three months - Does not smoke or take any recreational drugs - Adequate hydration with a daily intake goal - Experience with sedentary lifestyle enhancements via a local exercise track Review of Systems - Respiratory: Denies shortness of breath - Cardiovascular: Denies chest pain or palpitations - Gastrointestinal: Reports intermittent heartburn without medication; denies nausea, vomiting, difficulty swallowing, and alterations in bowel habits - Genitourinary: Denies nocturia - Musculoskeletal: Reports occasional unilateral pain, suspect muscular origin - Neurological: Denies loss of consciousness or new seizures - Psychiatric: Reports seasonal affective symptoms managed with vitamin D - ENT: Reports mild hearing loss and tinnitus; denies acute changes Physical Exam General: Cooperative, healthy appearing, comfortable, no acute distress and well developed Orientation: Patient oriented x3 Limitations: No limitations Head: Normal to inspection Ears: Decreased hearing bilaterally Nose: Normal external nose present Face and sinus: Normal facial exam Eyes: Appearance normal, both eyes and all related structures Neck: Normal visual inspection and Yes full ROM Respiratory: Normal respiratory effort and able to speak in complete sentences. Clear to auscultation bilaterally Cardiovascular: Regular rate and rhythm. Normal S1 and S2 GI: Normal to inspection. Soft to palpation and nontender Skin: No rashes or lesions noted Neuro: Patient oriented x3 Extremities: Normal to inspection, sometimes swelling in the legs in the afternoon Results - Hearing test: Mild hearing loss noted - CT Scan of abdomen (April): No abnormalities detected Plan The management plan focuses on chronic health conditions including GERD, obesity, hypercholesterolemia, and mild hearing loss. GERD is currently controlled through dietary modifications and lifestyle changes, with ongoing monitoring for symptom recurrence. Low-fat diet adherence and increased physical activity are recommended to manage obesity and improve lipid profiles, with fasting labs deferred for future evaluation of cholesterol objectives. Musculoskeletal discomfort attributed to occupational strain will be monitored, and the patient is advised on ergonomic adjustments. Preventive care includes annual flu vaccination, achieved in this visit, and continuous vitamin D intake for seasonal affective symptoms. Follow-up evaluations are planned based on symptom progression or re-examination of concerns, focusing on contributing factors affecting wellness. Patient was informed and verbally consented to the use of an ambient scribe for clinic note documentation during this visit. Discussion Notes During the consultation, we discussed the management of his GERD through dietary adjustments and ceased use of omeprazole due to adverse reactions. Preventive strategies for hypercholesterolemia were stressed, emphasizing the importance of controlled LDL and triglyceride levels. A flu vaccination was administered, and guidance on heart-healthy lifestyle modifications was provided. We covered the potential work-related origin of his musculoskeletal pain, recommending ergonomic solutions to alleviate stress-related symptoms. I explained that repeat cholesterol assessments would be scheduled, and fasting is required for accurate lab results, with an emphasis on vigilance over potential familial cardiovascular risk factors. Seasonal vitamin D supplementation was reviewed for its role in alleviating depressive symptoms, and dedicated time for exercise is encouraged. Follow-up on any ear, nose, or throat symptoms was advised based on changes in auditory function. Patient Instructions - Adopt a low-fat diet to manage GERD symptoms and control cholesterol levels. - Integrate physical activity into your daily routine to address obesity and cardiovascular health. - Monitor heartburn, and seek medical care if symptoms persist or worsen. - Avoid unilateral exertion at work; utilize ergonomic aids where necessary. - Complete fasting labs for cholesterol reassessment as discussed. - Adhere to vitamin D supplementation, especially in winter months. - Receive a flu shot and schedule future vaccines as recommended. - Maintain adequate hydration. - Avoid smoking and limit alcohol consumption. - Report any changes in hearing or balance to healthcare providers. Orders: Orders Complete Blood Count Auto Diff Today E78.00 - Pure hypercholesterolemia, unspecified Lipid Panel Today E78.00 - Pure hypercholesterolemia, unspecified Thyroid Stimulating Hormone Today E78.00 - Pure hypercholesterolemia, unspecified Influenza [id number] Immunization Today Z23 - Encounter for immunization Comprehensive Met. Panel Today E78.00 - Pure hypercholesterolemia, unspecified Free T4 (Free Thyroxine) Today E78.00 - Pure hypercholesterolemia, unspecified Vitamin B12 and Folate Today E78.00 - Pure hypercholesterolemia, unspecified UA w Microscopic Today E78.00 - Pure hypercholesterolemia, unspecified
--- OUTSIDE RECORDS SUMMARY | 2024-08-23 12:41 | XMS_ITS | Clinical Summary ---
Author Organization [facility] Address [address] [place] [address] Care Team Providers Care Satellite Dish Installer Name Role Phone Unavailable Primary Care Provider Unavailabl e Source Comments PLEASE NOTE, if this patient is a minor, it may be UNLAWFUL to discuss sensitive information that is contained in these records (such as FAMILY PLANNING, MENTAL HEALTH or SUBSTANCE ABUSE) with the minor patient's parent or other person without the patient's specific authorization.[facility] Allergies No known active allergies Medications benzocaine-menth ol (CEPACOL SORE THROAT, AB-MEN,) 15-2.6 mg lozgIndications: URI (upper respiratory infection) 1 Each by mucous membrane route 3 (three) times daily as needed (sorethroat). 30 Each 2 5 Active guaiFENesin-dext romethorphan (Q-TUSSIN DM) 10-100 mg/5 mL syrupIndications :URI (upper respiratory infection) Take 10 mL by mouth 3 (three) times daily as needed for cough. 1 Bottle 0 5 Active loratadine (CLARITIN) 10 mg tablet TAKE 1 TABLET BY MOUTH ONCE DAILY NEEDED FOR ALLERGIES. 30 Tab 1 5 Active Active Problems Problem Noted Date Diagnosed Date Routine general medical exam ination at a health care facility 08/09/2014 Mild vitamin D deficiency 04/03/2014 Dyslipidemia 03/25/2014 Cough with sputum 03/19/2014 Overview (05/06/2014): Normal pulmonary function test. Ex-smoker 03/19/2014 Overview (05/02/2014): pft- no evidence of obstructive or restrictive lung disease. Environmental allergies 03/19/2014 Resolved Problems Problem Noted Date Diagnosed Date Resolved Date Acute bronchitis 03/17/2014 02/06/2021 Overview (03/17/2014): Seen in er on 03/13/14. Immunizations Name Administration Dates Next Due INFLUENZA, SEASONAL, INJECTABLE 04/19/2014 Family History Medical History Relation Name Comments Heart Problems Father Diabetes Mother Heart Problems Mother Relation Name Status Comments Father Mother Social History Tobacco Use Types Packs/Day Years Used Date Smoking Tobacco: Former Smokeless Tobacco: Never Tobacco Cessation:Counseling Given: No Alcohol Use Standard Drinks/Week Comments No 0 (1 standard drink = 0.6 oz pur e alcohol) rarely Social Connections Answer Date Recorded Social Connections and Isolation 0 02/10/2019 Financial Resource Strain Answer Date R ecorded Financial Resource Strain 0 2018 Stress Answer Date Recorded Stress 0 02/10/2019 Physical Activity Answer Date Recorded Physical Activity 0 02/10/2019 Food Insecurity Answer Date Recorded Food 0 02/10/2019 Transportation Needs Answer Date Record ed Transportation 0 02/10/2019 Housing Stability Answer Date Recorded Housing 0 02/10/2019 Safety and Environment Answer Date Joni rded Safety 0 02/10/2019 Utilities Answer Date Recorded Utilities 0 02/10/2019 Employment Answer Date Recorded Employment 0 02/10/2019 Sex and Gender Information Value Date Recorded Sex Assigned at Not on file Legal Sex Male 11:36 AM PDT Gender Identity Not on file Sexual Orientation Not on file Last Filed Vital Signs Vital Sign Reading Time Taken Comments Blood Pressure 120/70 08/09/2014 3:49 PM EST Pulse 68 08/09/2014 3:49 PM EST Temperature 37.1 ??C (98.7 ??F) 08/09/2014 3:49 PM ES T Respiratory Rate 17 08/09/2014 3:49 PM EST Oxygen Saturation - - Inhaled Oxygen Concentration - - Weight 84.4 kg (186 lb) 08/09/2014 3:49 PM EST Height - - Body Mass Index - - Plan of Treatment Not on file Insurance [facility] Member Subscriber Plan / Payer (Ef fective 2014-Present) Name:Emerson Oswald Relation to Subscriber:Self Name:Emerson Oswald Payer ID:[id number] Group ID:Not on file Type:Medicaid Address: [place] Pending sale to [facility] [employer] [place] [id number]
--- OUTSIDE RECORDS SUMMARY | 2024-08-23 12:41 | XMS_ITS | Data Portability ---
Author Organization BRUNO Álvarez s, [address] Address [address] [place] [address] Assessment No assessment recorded. Plan of Treatment Reminders Order Date Submit Date Provider Last Modified By Organization Details Last Modified Time Details Appointments None recorded. Lab SARS CoV 2 (COVID-19) Ag, QL, IA, upper respiratory specimen 2022 023 djanvier [facility] [address], [address] [place], [address], 3 12:00:25 rapid flu (A+B) 2022 023 [facility] [address], [address] [place], [address], 3 12:00:26 Referral None recorded. Procedures None recorded. Surgeries None recorded. Imaging None recorded. Medication Orders ofloxacin 0.3 % ear drops 2023 024 [facility] #[id number], [address] [place], [address], 4 15:57:50 fexofenadin e-pseudoeph edrine ER 180 mg-240 mg tablet,ext. release 24 hr 2023 024 [facility] #[id number], [address] [place], [address], 4 15:57:51 ciprofloxac in 0.3 %-dexametha sone 0.1 % ear drops,suspe nsion 2022 024 [facility] #[id number], [address] [facility], [place], [address], 15:51:35 Patient TargetsNo targets recorded. Patient Instructions Encounter Date Encounter Id Patient Instructions Last Modified By Organization Details Last Modified Time 06/06/2023 [id number] earache: care instructions Not available 06/06/2023 12:00:50 upper respirator y infection (cold): care instructions Not available 06/06/2023 12:00:50 n upper respiratory infection, or URI, is an infection of the nose, sinuses, or throat. URIs are spread by coughs, sneezes, and direct contact. The common cold is the most frequent kind of URI. The flu and sinus infections are other kinds of URIs. Almost all URIs are caused by viruses. Antibiotics won't cure them. But you can treat most infections with home care. This may include drinking lots of fluids and taking fmvr-xyz-icmvcji pain medicine. You will probably feel better in 4 to 10 days. The doctor has checked you carefully, but problems can develop later. If you notice any problems or new symptoms, get medical treatment right away. Follow-up care is a joya part of your treatment and safety. Be sure to make and go to all appointments, and call your doctor if you are having problems. It's also a good idea to know your test results and keep a list of the medicines you take. How can you care for yourself at home? To prevent dehydration, drink plenty of fluids. Choose water and other clear liquids until you feel better. If you have kidney, heart, or liver disease and have to limit fluids, talk with your doctor before you increase the amount of fluids you drink. Take an vvcx-tpi-kfphhts pain medicine, such as acetaminophen (Tylenol), ibuprofen (Advil, Motrin), or naproxen (Aleve). Read and follow all instructions on the label. Before you use cough and cold medicines, check the label. These medicines may not be safe for young children or for people with certain health problems. Be careful when taking sche-wra-fxmhcta cold or flu medicines and Tylenol at the same time. Many of these medicines have acetaminophen, which is Tylenol. Read the labels to make sure that you are not taking more than the recommended dose. Too much acetaminophen (Tylenol) can be harmful. Get plenty of rest. Do not smoke or allow others to smoke around you. If you need help quitting, talk to your doctor about stop-smoking programs and medicines. These can increase your chances of quitting for good. Not available 06/06/2023 12:01:10 01/02/2024 [id number] Follow up with your PCP or at [facility] in 2-3 weeks to have your ears rechecked to ensure the infection has resolved completely. Not available 01/02/2024 15:48:44 Reason for Referral None Reported. Results Created Date Observation Date Name Description Value Unit Range Abnormal Flag Note LastModifiedBy Organization Detail LastModifiedTime 06/06/2006/06/2023 rapid flu (A+B) Unknown Analyte negati ve Not Available [facility] [address] [place], [address], 06/06/2023 10:38:38 06/06/20 23 06/06/2023 rapid flu (A+B) Unknown Analyte negati ve Not Available [facility] [address] [place], [address], 06/06/2023 10:38:38 06/06/20 23 06/06/2023 rapid flu (A+B) Unknown Analyte yes Not Available [facility] [address] [place], [address], 06/06/2023 10:38:38 06/06/20 23 06/06/2023 SARS CoV 2 (COVI D-19) Ag, QL, IA, upper respi rator y speci men Unknown Analyte negati ve Not Available [address] [facility] [place], [address], 06/06/2023 10:38:33 06/06/20 23 06/06/2023 SARS CoV 2 (COVI D-19) Ag, QL, IA, upper respi rator y speci men Unknown Analyte yes Not Available [address] [place], [address], 06/06/2023 10:38:33 Result Notes None recorded. Problems Name Problem SNOMED Code Status Onset Date Resolution Date Notes Provider Name and Address Organization Details Recorded Time Acute right otitis media 899742158 Active 2023 Fortunato Herman, MUSIC SOUND LIGHT TECHNICIAN [address] , [place], [address], [place] - [facility] 4 15:55:19 Acute serous otitis media of bilateral ears 25165995969053 07 Active 2023 Fortunato Herman, MUSIC SOUND LIGHT TECHNICIAN [address] , [place], [address], [place] - [facility] 4 15:55:38 Otitis externa of right ear 65255124793115 01 Active 2023 Fortunato Herman, MUSIC SOUND LIGHT TECHNICIAN [address] , [place], [address], [place] - [facility] 4 15:56:36 Problem Notes None recorded. Medical Equipment None Reported. Allergies No known drug allergies Medications Name Sig Start Date Stop Date Status Note LastModified by Organization Details LastModified Time ofloxacin 0.3 % ear drops INSTILL 10 DROPS INTO AFFECTED EAR(S) BY OTIC ROUTE ONCE DAILY X 10 DAYS. active Not Available Not Available No t Available ciprofloxac in 0.3 %-dexametha sone 0.1 % ear drops,suspe nsion INSTILL 4 DROPS INTO AFFECTED EAR(S) TWICE A DAY FOR 7 DAYS 01/01 completed Not Available Not Available Not Available Allergy Relief-D (fexofenadi ne) 180 mg-240 mg tablet,ext. release 24 hr TAKE 1 TABLET EVERY DAY BY ORAL ROUTE IN THE EVENING FOR 10 DAYS, FOR NASAL DECONGEST ION. active Not Available Not Available No t Available Vitals Date Recorded Body height Body mass index (BMI) Body weight Body temperature Oxygen saturation Oxygen saturation in Arterial blood by Pulse oximetry Heart rate Respiratory rate Pain severity - 0-10 verbal numeric rating [Score] - Reported Systolic blood pressure Diastolic blood pressure Provider Name and Address Organization Details Last Updated DateTime 3 167.64 cm 32.3 kg/m2 81447.4 7 g 98.3 [degF] 96 % 96 % 60 /min 18 /min 1 136 mm[Hg] 79 mm[Hg] Heaven Casillasella PA - [facility] 3 10:40:31 Date Recorded Body height Body mass index (BMI) Body weight Oxygen saturation Oxygen saturation in Arterial blood by Pulse oximetry Heart rate Respiratory rate Body temperature Systolic blood pressure Diastolic blood pressure Provider Name and Address Organization Details Last Updated DateTime 4 167.64 cm 31.5 kg/m2 00571.5 1 g 97 % 97 % 69 /min 18 /min 98.2 [degF] 134 mm[Hg] 79 mm[Hg] Gladys Santamaria PA - [facility] 4 15:50:46 Social History Question Answer Notes LastModified by [employer] Details LastModified Time Tobacco Smoking Status Never Smoker Heaven Casillasflorentino barnard PA - [facility] 06/06/2023 10:38:19 What Is Your Level Of Alcohol Consumption? None Information not available 06/06/2023 Have You Had A Flu Shot This Season? No Information not available 06/06/2023 Have You Had Direct Contact, Or Contact During Intimacy, With Monkeypox Rash, Scabs, Or Body Fluids From A Person With Monkeypox? No Information not available 06/06/2023 What Was The Date Of Your Most Recent Tobacco Screening? 01/02/2024 Information not available 01/02/2024 Do You Use Any Illicit Or Recreational Drugs? No Information not available 06/06/2023 Have You Recently Traveled Abroad? No Information not available 06/06/2023 Do You Or Have You Ever Used Any Other Forms Of Tobacco Or Nicotine? No Information not available 06/06/2023 Sex: Unknown Functional Status None recorded. Mental Status None recorded. Family History Relationship Description Onset Age of this Age Resolved Age Notes LastModified by Organization Details LastModified Time Father No current problems or disability Not available 05/20 10:38:05 Mother No current problems or disability Not available 05/20 10:38:05 Medical History No medical history recorded. Immunizations Vaccine Type Date Status Note Provider Nam e and Address Organization Details Recorded Time Influenza, MDCK, quadrivalent, PF 0 completed Heaven Lindsey null, [place] - [facility] 06/06/2023 10:37:36 Influenza, MDCK, quadrivalent, preservative 8 completed Heaven Lindsey null, PA - [facility] 06/06/2023 10:37:36 COVID-19, mRNA, LNP-S, PF, 30 mcg/0.3 mL dose 1 completed Heaven Lindsey null, PA - [facility] 06/06/2023 10:37:36 COVID-19, mRNA, LNP-S, PF, 30 mcg/0.3 mL dose 1 completed Heaven Lindsey null, PA - [facility] 06/06/2023 10:37:36 Tdap 7 completed Heaven Lindsey null, PA - [facility] 06/06/2023 10:37:36 Influenza, split virus, trivalent, preservative 4 completed Heaven Lindsey null, PA - [facility] 06/06/2023 10:37:36 Influenza, split virus, quadrivalent, PF 1 completed Heaven Lindsey null, PA - [facility] 06/06/2023 10:37:36 Past Encounters Encounter ID Performer Location Encounter Start Date Encounter Closed Date Diagnosis/Indication Diagnosis SNOMED-CT Code Diagnosis ICD10 Code Diagnosis Note [id number] [address] [address] 05/04/2017 16:47:09 05/04/2017 17:51:[id number] [address] [address] 05/04/2017 17:07:25 05/04/2017 17:51:13 [id number] [address] [facility] [address] 11/27/2018 11:08:36 11/27/2018 11:56:17 [id number] [address] [facility] [address] 06/29/2017 19:23:15 06/29/2017 20:02:24 [id number] [place] [address] [address] [place] [address] 06/06/2023 10:00:23 06/06/2023 12:05:48 Otalgia of right ear 5980766817 H92.01 Acute uppe r respiratory infection 82485661 J06.9 [id number] [place] [address] [address] [place] [address] 01/02/2024 15:26:56 01/02/2024 16:00:01 Acute serous otitis media of bilateral ears 2825235208 101469 H65.03 You have been diagnosed with a Ear Infection Today. Suggestion s to help with your discomfort and recovery include:1. Laying the effected ear on a heating pad or applying a warm rice bag or something warm.2. Motrin and Tylenol Regularly - this will help with pain and inflammati on of the Eustachian Tube - this is very important for a speedy recovery.3 . Antihistam ine like Claritin/Z yrtec/Carlito gra/benadr yl - will help with congestion and swelling in the Eustachian Tube.4. Saline Nasal Spray5. Salt Water Gargle6. Staying Hydrated If you develop any of the following Symptoms I would be seen again:1. Fever > 101.02. Stiff Neck3. Swelling of the Lymph Nodes around the ear or neck4. Worsening Pain5. Bleeding from the Ear6. Severe Sore Throat Go Immediatel y to the ER if you develop1. Severe Headache2. Chest Pain3. Shortness of Breath. Antibiotic s typically take 4-5 days to start working so do the above to help with your symptoms. Probiotics are important while taking antibiotic s - I recommend Florastor Make sure you finish the full course of the antibiotic s - if you don't this can lead to antibiotic resistance . Thank you for using [facility] today - and don't hesitate to contact our office if you have any concerns or questions. Otitis ext dorcas of right ear 0767096109 954505 H60.91 You have been diagnosed with a External Ear infection and early erysipelas . Suggestion s to help with your discomfort and recovery include:1. Laying the effected ear on a heating pad or applying a warm rice bag or something warm.2. Motrin and Tylenol Regularly - this will help with pain and inflammati on of the Eustachian Tube - this is very important for a speedy recovery.3 . Antihistam ine like benadryl - will help with swelling.4 . Staying Hydrated If you develop any of the following Symptoms I would be seen again - I would recommend the ER1. Fever > 101.02. Stiff Neck3. Pain in the skull behind the Ear.4. Worsening Pain5. Bleeding from the Ear6. Severe Sore Throat.7. Severe Headache Antibiotic s typically take 4-5 days to start working so do the above to help with your symptoms. Probiotics are important while taking antibiotic s - I recommend Florastor Make sure you finish the full course of the antibiotic s - if you don't this can lead to antibiotic resistance . Thank you for using [facility] today - and don't hesitate to contact our office if you have any concerns or questions. Health Concerns Section Related Observation LastModified by Organization Detai ls LastModified Time None Recorded Concern Status LastModified by Organization Details LastModified Time None Recorded Advance Directives Directive None Recorded Payers Encounter Date Sequence Insurance Name Policy Number Policy Garcia Covered Member ID Garcia Member ID Guarantor Name 11/27/2018 1 [facility] [id number] Emerson Villalpando [id number] Emerson Oswald 06/06/2023 1 [facility] [id number] Emerson Villalpando [id number] Emerson Oswald 01/02/2024 1 [facility] NET PLAN (MEDICAID HMO) Emerson Oswald [id number] Emerson Oswald Notes Date Note Type Note Provider Name and Address Organization Details Recorded Time 3 text/html Ear problem UCReported bypatient.source of patient informationInformation obtained from patient; Patient arrived at Urgent Care ambulatory Location:right Quality:pain Severity:mild Duration:started ; 4 weeks Context:no recent swimming/water in ear; no recent air travel;sick contact Modifying Factors:does not hurt to lie on, or pull on ear; does not hurt to chewEar Pain Brief HPIReported bypatient.Notes:On and off since thanksgi. In right ear but feels it in the left as well. had exposure to the flu. mild ST , denies congestion Xiao Lyman NP [address] [place], [address], [employer] [facility] 06/06/2023 12:02:39 text/html Ear problem UCReported bypatient.source of patient informationInformation obtained from patient; Patient arrived at Urgent Care ambulatory; learning styles: auditory Location:bilateral Quality:clogged;decreased hearing Severity:moderate Duration:2 weeks Context:no sick contacts; no recent swimming/water in ear; no recent air travel Modifying Factors:does not hurt to chew;hurts to lie on, or pull on ear; often has wax accumulation Associated Symptoms:popping noise in the ears Fortunato Herman NP [address] [place], [address], [place] [employer] [facility] 01/02/2024 15:58:12
--- OUTSIDE RECORDS SUMMARY | 2024-08-23 12:41 | XMS_ITS | Clinical Summary ---
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 Name Role Phone Jeffery King MD Primary Care Provider [phone] Surgical History Surgery Date Site/Laterality Comments OTHER SURGICAL HISTORY PROCEDURE: DENIES PREVIOUS SURGERY Medical History Medical History Date Comments GERD (gastroesophageal reflux disease) DX:GERD (gastroesophageal reflux disease) Hypercholesteremia 11/26/2016 DX:Hyperchole steremia Allergic rhinitis 12/29/2016 DX:Allergic rh initis Hepatic steatosis DX:Hepatic darius atosis Obesity (BMI 30.0-34.9) 07/05/2018 DX:Obesi ty (BMI 30.0-34.9) Tonsillith DX:Tonsillith Family History Medical History Relation Name Comments Hypertension Father Other: heart disease Father Diabetes Mother Other: heart disease Mother Other: hyperlipidemia Mother Hypertension Sister Relation Name Status Comments Father Alive Mother Alive Sister Social History Tobacco Use Types Packs/Day Years Used Date Smoking Tobacco: Former Cigarettes 0 06/20/1998 - 06/20/2011 Smokeless Tobacco: Never Alcohol Use Standard Drinks/Week Comments Yes 0 (1 standard drink = 0.6 oz pur e alcohol) Sex and Gender Information Value Date Recorded Sex Assigned at Not on file Legal Sex Male 3:33 PM EST Gender Identity Not on file Sexual Orientation Not on file Obstetrics History Plan of Treatment Health Maintenance Due Date Last Done Comments Hepatitis B Vaccines (1 of 3 - 19+ 3-dose series) 12/08/1995 COVID-19 Vaccine (2023-2 5 season) 2024 Influenza Vaccine (#1) 2024 0, 04/11/2018 DTaP,Tdap,and Td Vaccines (2 - Td or Tdap) 12/29/2026 12/29/2016 HIB Vaccines Aged Out No longer eligi ble based on patient's age to complete this topic HPV Vaccines Aged Out No longer eligi ble based on patient's age to complete this topic Hepatitis A Vaccines Aged Out No long er eligible based on patient's age to complete this topic IPV Vaccines Aged Out No longer eligi ble based on patient's age to complete this topic MMR Vaccines Aged Out No longer eligi ble based on patient's age to complete this topic Meningococcal ACWY Vaccine Aged Out N o longer eligible based on patient's age to complete this topic Meningococcal B Vacine Aged Out No lo nger eligible based on patient's age to complete this topic Pneumococcal Vaccine: Pediatrics (0 to 5 Years) and At-Risk Patients (6 to 64 Years) Aged Out No longer eligible b ased on patient's age to complete this topic RSV Immunization Patients Under 20 months Aged Out No longer eligible b ased on patient's age to complete this topic Varicella Vaccines Aged Out No longer eligible based on patient's age to complete this topic Care Teams Field Crop Harvest Worker Relationship Specialty Start Date End Date Jeffery King MD PCP - General Internal Medicine 07/25/19
== END 2024-08-23 12:09 | disposition home or self-care (01) ==
PROVIDERS: PCP Internal Medicine; Visit Provider Internal Medicine
DX: Z00.00 Encounter for general adult medical examination without abnormal findings (principal); E66.9 Obesity, unspecified; Z68.31 Body mass index [BMI] 31.0-31.9, adult; E78.00 Pure hypercholesterolemia, unspecified; K21.9 Gastro-esophageal reflux disease without esophagitis; K76.0 Fatty (change of) liver, not elsewhere classified; H90.5 Unspecified sensorineural hearing loss; Z23 Encounter for immunization

== ENCOUNTER → 2024-08-23 10:36 | Outpatient (BNVA) | payer OTHER, SELFPAY | PROVIDERS: PCP Internal Medicine; Visit Provider Internal Medicine | DX: Z00.00 Encounter for general adult medical examination without abnormal findings (principal); Z23 Encounter for immunization; E66.9 Obesity, unspecified; E78.00 Pure hypercholesterolemia, unspecified; K21.9 Gastro-esophageal reflux disease without esophagitis; K76.0 Fatty (change of) liver, not elsewhere classified; H90.5 Unspecified sensorineural hearing loss | CPT/HCPCS: 90471; 90656; 96127; 99396 ==

== ENCOUNTER 2025-06-18 11:42 | Outpatient (AMB) | payer OTHER, SELFPAY ==
--- NOTE | 2025-06-18 11:43 | MHC.PC.OV ---
Intake Visit Reasons: Covid Pos. Allergies No Known Allergies Allergy (Verified 06/18/25 11:44) Medication List - Last Reconciled 06/18/25 by Kevin Geronimo MD sertraline 50 mg PO DAILY Tobacco use date assessed: 04/29/25 Dental Screening Dental Screen Date: 04/29/25 HPI Covid Pos. HPI Details weekend sick covid tested positive, no fevers, cough and tired, myalgia, knee and elbow hurting, sore throat, had diarrhea, HPI Comments History of Present Illness Details History of Present Illness The patient is a 49-year-old male presenting for evaluation following a positive COVID-19 test. He began feeling sick over the weekend with symptoms including cough, severe fatigue, diffuse myalgia, and arthralgia affecting his knees and elbows. He also developed a sore throat and had an episode of diarrhea yesterday, which has since resolved. The patient denies having a fever but did experience night sweats. His symptoms worsened on Tuesday, prompting his to get him a COVID test, which came back positive. He reports feeling slightly better today. His past medical history is significant for obesity, seizure disorder, GERD, hypercholesterolemia, fatty liver, and depression. [facility] Medical History Epiploic appendagitis Seizure GERD (gastroesophageal reflux disease) Overweight (BMI 25.0-29.9) Pain, chest wall Surgical History Hx of colonoscopy No pertinent past surgical history Family History Father Myocardial infarct Mother Depression ICD (implantable cardioverter-defibrillator) in place Social History Housing: House Alcohol intake: current Alcohol intake frequency: a few times a month Comment: once Q 3 months 1-2 drinks Patient Tobacco Use Status: Former Tobacco user Tobacco use type: Cigarette Years Smoked: quit 2003 e-Cigarette/Vaping Use: Never Used Second Hand Smoke Exposure: No Current occupational status: employed Cognitive needs: No Hearing needs: No Vision needs: Yes Questionnaire Thrive Questionnaire Date Thrive assessed: 08/23/24 LESLIE-7 AMB Questionnaire LESLIE-7 Date LESLIE - 7 assessed: 08/23/24 Source: Developed by Drs. Trent Escamilla, Kelin Bentley, Jasson Montes and colleagues, with an educational sunita from [employer]. Review of Systems Narrative Review of Systems - Constitutional: Reports fatigue and night sweats. - Denies fever. - ENT: Reports sore throat. - Respiratory: Reports cough. - Gastrointestinal: Reports a resolved episode of diarrhea. - Musculoskeletal: Reports diffuse myalgia and arthralgia affecting his knees and elbows. - Genitourinary: Denies urinary problems. Physical exam (Primary Care) Tobacco/Smoking Status: Tobacco use Status Tobacco use date assessed 04/29/25 06/18/25 11:43 Patient Tobacco Use Status Former Tobacco user 06/18/25 11:43 Tobacco use type Cigarette 06/18/25 11:43 e-Cigarette/Vaping Use Never Used 06/18/25 11:43 Thrive Assessment: Date of Thrive Assessment Date Thrive assessed 08/23/24 06/18/25 11:43 Telehealth Telehealth Telehealth Platform: Telephone Location of provider rendering services: practice address Location of patient: address on file Patient Identification confirmed using: Name, : Yes Telehealth method: voice only Patient verbally consented to treatment: Yes Patient verbally consented to billing insurance company: Yes Patient informed of any privacy concerns related to visit: Yes Minutes spent on Phone/Video with Pt.: 15 Coding Level of Care Code Tele Est Pt Level 3 (95542) Diagnoses COVID-19 virus infection U07.1 Assessment & Plan Assessment & Plan (1) COVID-19 virus infection: Comment: 06/17/2025 Code(s): U07.1 - COVID-19 Category: Medical Plan: For the sore throat can take Cepacol lozenges, discussed about Delsym to help with dry cough so she can rest and advised to increase oral fluids. Patient also can take Tylenol for chills and fever. Antiviral Paxlovid prescription sent in. Plan Plan Patient was informed and verbally consented to the use of an ambient scribe for clinic note documentation during this visit. 1. Covid-19 The patient has a confirmed COVID-19 infection with symptoms of cough, fatigue, myalgia, arthralgia, and a resolved episode of diarrhea. To help prevent long COVID, an antiviral was discussed and prescribed, despite the patient feeling slightly better. A prescription for Paxlovid has been sent. The patient was advised to maintain hydration, and recommendations were provided for yoao-ykb-nnifqrh medications to manage symptoms, including Delsym for cough, Cepacol for sore throat, and Tylenol for potential fever. Discussion Notes I discussed the patient's positive COVID-19 test and his associated symptoms. I explained that an antiviral medication is recommended to help prevent long COVID, even though his symptoms are improving slightly. I informed him about potential side effects of the antiviral, specifically a metallic taste. A 5-day course of Paxlovid was prescribed. I recommended supportive care, emphasizing the importance of staying well-hydrated. I also suggested sevs-cjm-qcnrzjo options for symptom management, including Delsym for cough, Cepacol lozenges for sore throat, and Tylenol for any potential fever. Patient Instructions - A prescription for the antiviral medication Paxlovid has been sent to your pharmacy. - Take this for 5 days as directed to help prevent long-term problems from COVID-19. - Be aware that the medication may cause a metallic taste in your mouth. - Drink plenty of water to stay hydrated. - For a dry cough, you can take hgmf-snu-fihqehu Delsym. - For a sore throat, you can use Cepacol lozenges. - If you develop a fever, you can take Tylenol. Medications: New nirmatrelvir-ritonavir 300 mg (150 mg x 2)-100 mg (Paxlovid) take TWO 150 mg tablets of nirmatrelvir with ONE 100 mg tablet of ritonavir twice daily for 5 days PO 30 ea 0RF U07.1 - COVID-19
--- OUTSIDE RECORDS SUMMARY | 2025-06-18 15:45 | XMS_ITS | Data Portability ---
Author Organization [facility], [address] Address [address] [place] [address] Assessment No assessment recorded. Plan of Treatment Reminders Order Date Submit Date Provider Last Modified By Organization Details Last Modified Time Details Appointments None recorded. Lab SARS CoV 2 (COVID-19) Ag, QL, IA, upper respiratory specimen 2022 023 djanvier [facility] [address], [address] [place], [address], 3 12:00:25 rapid flu (A+B) 2022 023 20993[facility] [address], [address] [place], [address], 3 12:00:26 Referral None recorded. Procedures None recorded. Surgeries None recorded. Imaging None recorded. Medication Orders ofloxacin 0.3 % ear drops 2023 024 [facility] #[id number], [address] [place], [address], 4 15:57:50 fexofenadin e-pseudoeph edrine ER 180 mg-240 mg tablet,ext. release 24 hr 2023 024 [facility] #[id number], [address] [place], [address], 4 15:57:51 ciprofloxac in 0.3 %-dexametha sone 0.1 % ear drops,suspe nsion 2022 024 [facility]arm[facility] #[id number], [address] [place], [address], 4 15:51:35 Patient TargetsNo targets recorded. Patient Instructions Encounter Date Encounter Id Patient Instructions Last Modified By Organization Details Last Modified Time 06/06/2023 [id number] earache: care instructions Not available 06/06/2023 12:00:50 [...] include drinking lots of fluids and taking hdfc-hhv-bbiskln pain medicine. You will probably feel better [...] amount of fluids you drink. Take an bbmp-etj-xjoxcsn pain medicine, such as acetaminophen (Tylenol), ibuprofen (Advil, Motrin), or naproxen (Aleve). Read and follow all instructions on the label. Before you use cough and cold medicines, check the label. These medicines may not be safe for young children or for people with certain health problems. Be careful when taking hwoz-ris-jiesxum cold or flu medicines and Tylenol at [...] for good. Not available 06/06/2023 12:01:10 01/02/2024 [id number] [facility]CP [facility] to have your ears rechecked to ensure the infection has resolved completely. Not available 01/02/2024 15:48:44 Reason for Referral None Reported. Results Created Date Observation Date Name Description Value Unit Range Abnormal Flag Note LastModifiedBy Organization Detail LastModifiedTime 06/06/2006/06/2023 rapid flu (A+B) Unknown Analyte negati ve Not Available [facility] [address] [place], [address], 06/06/2023 10:38:38 06/06/20 23 06/06/2023 rapid flu (A+B) Unknown Analyte negati ve Not Available [facility] [address] [place], [address], 06/06/2023 10:38:38 06/06/20 23 06/06/2023 rapid flu (A+B) Unknown Analyte yes Not Available [address] [facility] [address] [place], [address], 06/06/2023 10:38:38 06/06/20 23 06/06/2023 SARS CoV 2 (COVI D-19) Ag, QL, IA, upper respi rator y speci men Unknown Analyte negati ve Not Available [address] [address] [place], [address], 06/06/2023 10:38:33 06/06/20 23 06/06/2023 SARS CoV 2 (COVI D-19) Ag, QL, IA, upper respi rator y speci men Unknown Analyte yes Not Available [address] [place], [address], 06/06/2023 10:38:33 Result Notes None recorded. Problems Name Problem SNOMED Code Status Onset Date Resolution Date Notes Provider Name and Address Organization Details Recorded Time Acute right otitis media 628413462 Active 2023 Fortunato Herman, ANESTHESIA ATTENDING [address] , [place], [address], [place] - [facility] 4 15:55:19 Acute serous otitis media of bilateral ears 46408583161875 07 Active 2023 Fortunato Herman, ANESTHESIA ATTENDING [address] , [place], [address], [place] - [facility] 4 15:55:38 Otitis externa of right ear 38922517026273 01 Active 2023 Fortunato Herman, ANESTHESIA ATTENDING [address] , [place], [address], [place] - [facility] 4 [...] nsion INSTILL 4 DROPS INTO AFFECTED EAR(S) BY OTIC ROUTE 2 TIMES PER DAY FOR 7 DAYS 01/01 completed Not Available Not Available Not Available Allergy Relief-D (fexofenadi ne) 180 mg-240 mg tablet,ext. release 24 hr TAKE 1 TABLET EVERY DAY BY ORAL ROUTE IN THE EVENING FOR 10 DAYS, FOR NASAL DECONGEST ION. active Not Available Not Available No t Available Vitals Date Recorded Body height Body mass index (BMI) Body weight Oxygen saturation Heart rate Respiratory rate Body temperature Systolic And Diastolic Provider Name and Address Organization Details Last Updated DateTime 4 167.64 cm 31.5 kg/m2 25835.5 1 g 97 % 69 /min 18 /min 98.2 [degF] 134/79 mm[Hg] Gladys Santamaria PA - [facility] 4 15:50:46 Date Recorded Body height Body mass index (BMI) Body weight Body temperature Oxygen saturation Heart rate Respiratory rate Pain severity - 0-10 verbal numeric rating [Score] - Reported Systolic And Diastolic Provider Name and Address Organization Details Last Updated DateTime 3 167.64 cm 32.3 kg/m2 74390.4 7 g 98.3 [degF] 96 % 60 /min 18 /min 1 136/79 mm[Hg] Heaven Portillo PA - [facility] 3 10:40:31 Social History Question Answer Notes LastModified by LogMeIn Details LastModified Time Tobacco Smoking Status Never Smoker Heaven Portillo akil PA - [facility] 06/06/2023 10:38:19 Have You Had A Flu Shot This Season? No Information not available 06/06/2023 Have You Had Direct Contact, Or Contact During Intimacy, With Monkeypox Rash, Scabs, Or Body Fluids From A Person With Monkeypox? No Information not available 06/06/2023 What Was The Date Of Your Most Recent Tobacco Screening? 01/02/2024 Information not available 01/02/2024 Have You Recently Traveled Abroad? No Information not available 06/06/2023 Sex: Unknown Functional Status Question Answer Note LastModified by LogMeIn Details LastModified Time Do you use any illicit or recreational drugs? No Information not available 06/06/2023 Do you or have you ever used any other forms of tobacco or nicotine? No Information not available 06/06/2023 What is your level of alcohol consumption? None Information not available 06/06/2023 Mental Status None recorded. Family History Relationship [...] Diagnosis SNOMED-CT Code Diagnosis ICD10 Code Diagnosis IMO Codes Diagnosis Note [id number] [facility] [address] [address] 05/04/2017 16:47:09 05/04/2017 17:51:09 [id number] [facility] [address] [address] 05/04/2017 17:07:25 05/04/2017 17:51:13 [id number] [facility] [facility] [address] [facility] [place] [address] 11/27/2018 11:08:36 11/27/2018 11:56:17 [id number] [facility] [facility] [address] [facility] [place] [address] 06/29/2017 19:23:15 06/29/2017 20:02:24 [id number] [place] [address] [facility] [facility] [address] [place] [address] 06/06/2023 10:00:23 06/06/2023 12:05:48 Otalgia of right ear 8457048506 H92.01 Acute uppe r respiratory infection 97268567 J06.9 [id number] [place] [address] [facility] [facility] [address] [place] [address] 01/02/2024 15:26:56 01/02/2024 16:00:01 Acute serous otitis media of bilateral ears 4346250660 927906 H65.03 You have been diagnosed with a [...] questions. Otitis ext dorcas of right ear 6895271876 671906 H60.91 You have been diagnosed with a [...] Recorded Advance Directives Directive None Recorded Payers Insurance Date Sequence Insurance Name Policy Number Policy Garcia Covered Member ID Garcia Member ID Guarantor Name 01/03/2024 1 [facility] PLAN (MEDICAID HMO) Emerson Oswald [id number] Emerson Oswald 01/02/2024 1 [employer]OLFO [id number] Emerson Villalpando [id number] Emerson Oswald Notes Date Note Type Note Provider Name and Address Organization Details Recorded Time 06/06/20 23 text/htm l Ear Pain Brief HPIReported by PatientOn and off since thanks. In right ear but feels it in the left as well. had exposure to the flu. mild ST , denies congestion Ear problem UCReported by PatientHPIFor quality, patient reportspain. For severity, patient reportsmild. For context, patient reportssick contactbut reportsno recent swimming/water in earandno recent air travel. For source of patient information, patient reportsinformation obtained from patientandpatient arrived at urgent care ambulatory. For location, patient reportsright. For duration, patient reportsstarted ___and4 weeks. For modifying factors, patient reportsdoes not hurt to lie on, or pull on earanddoes not hurt to chew. Xiao Lyman NP [address] [facility] [place], [address], [facility] 06/06/2023 12:02:39 01/02/20 24 text/htm l Ear problem UCReported by PatientHPIFor quality, patient reportscloggedanddecreased hearing. For severity, patient reportsmoderate. For modifying factors, patient reportshurts to lie on, or pull on earbut reportsdoes not hurt to chewandoften has wax accumulation. For associated symptoms, patient reportspopping noise in the ears. For source of patient information, patient reportsinformation obtained from patient,patient arrived at urgent care ambulatory, andlearning styles: auditory. For location, patient reportsbilateral. For duration, patient reports2 weeks. For context, patient reportsno sick contacts,no recent swimming/water in ear, andno recent air travel. Fortunato Herman NP [address] [facility] [place], [address], [facility] 01/02/2024 15:58:12
--- OUTSIDE RECORDS SUMMARY | 2025-06-18 15:45 | XMS_ITS | Clinical Summary ---
Author Organization [facility] Address [address] [place] [address] Care Team Providers Care Tree Marker Name Role Phone Jeffery King MD Primary Care Provider [phone] Surgical History Surgery Date Site/Laterality Comments OTHER [...] Years Used Date Smoking Tobacco: Former Cigarettes 13 0 06/20/1998 - 06/20/2011 Smokeless Tobacco: Never Alcohol Use Standard Drinks/Week Comments Yes 0 (1 standard drink = 0.6 oz pur e alcohol) Sex and Gender Information Value Date Recorded Sex Assigned at Not on file Legal Sex Male 3:33 PM EST Gender Identity Not on file Sexual Orientation Not on file Plan of Treatment Health Maintenance Due Date Last Done Comments Hepatitis B Vaccines (1 of 3 - 19+ 3-dose series) 12/08/1995 Depression Screening 06/20/2024 COVID-19 Vaccine (1 - 2024-2 6 season) 2025 Influenza Vaccine (#1) 2025 , 04/11/2018 DTaP,Tdap,and Td Vaccines (2 - Td or Tdap) 12/29/2026 12/29/2016 RSV Immunization Adult Patients (1 - 1-dose 75+ series) 12/08/2051 HIB Vaccines Aged Out No longer eligi [...] age to complete this topic Meningococcal B Vaccine Aged Out No l onger eligible based on patient's age to complete this topic Pneumococcal Vaccine: Pediatrics (0 to 5 Years) and At-Risk Patients (6 to 49 Years) Aged Out No longer eligible b ased on patient's age to complete this topic RSV Immunization Patients Under 20 months Aged Out No longer eligible b ased on patient's age to complete this topic Varicella Vaccines Aged Out No longer eligible based on patient's age to complete this topic Care Teams Tree Marker Relationship Specialty Start Date End Date Jeffery King MD PCP - General Internal Medicine 07/25/19
== END 2025-06-18 12:13 | disposition home or self-care (01) ==
LOC: HO.HMCH 11:42
PROVIDERS: PCP Internal Medicine; Visit Provider Internal Medicine
DX: U07.1 COVID-19 (principal)